=== PATIENT | female | born 1955 | race Caucasian/White ===

== ENCOUNTER → 2017-06-01 | Outpatient (CLI) | payer OTHER ==
[~2017-06-01] VITALS: Ht 157.5 cm; Wt 76.2 kg
[~2017-06-01] MED LIST: ALLERCLEAR10 MG PO; AMBEREN; ARTIFICIAL TEAR15 M3 OPHTHALMIC; CAMPRAL 333 MG333 M1 PO; CIPROFLOXACIN500 M3 PO; CORAL CALCIUM1 EAC2 PO; CYMBALTA60 MG PO; DEXAMETHASONE 44 M1 PO; DIAZEPAM 5 MG5 M1 PO; DYAZIDE 37.5-21 EACH PO; ESTRACE1 MG PO; ESTRODIAL PO; FENTANYL INTRATHECA; FENTANYL PA50 MCG/HR TRANSDERM; FISH OIL 1,0001 EAC5 PO; FISH OIL 1,001000 MG PO; KEPPRA 500 MG500 M1 PO; LOPRESSOR25 PO; MAXZIDE-25 MG1 EACH PO; MELATONIN3 MG PO; MORPHINE INTRATHECA; MS CONTIN 30 MG30 M1 PO; MS CONTIN30 MG PO; MULTI VITAMIN1 EACH PO; MULTIVITAMINS PO; NAFCILLIN 2 GM A2 G1 IV; NEURONTIN 300300 M1 PO; OXYCODONE HCL 55 MG PO; OXYCODONE HCL15 MG PO; OXYCODONE HCL5 M1 PO; OXYCODONE-ACET1 EAC2 PO; PROTONIX 20 MG20 M1 PO; PROTONIX40 M1 PO; REMERON 30 MG T30 MG PO; REMERON15 MG PO; ROXICODONE15 M1 PO; ROXICODONE5 M1 PO; TOPAMAX50 MG PO; TRAZODONE 150150 M1 PO; TRIAMTERENE-HC1 EAC3 PO; TYLENOL325 MG PO; XANAX 0.25 MG0.25 MG PO; ZOFRAN ODT4 MG PO; [UNRECOGNIZED DRUG - OTHER]
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
[2017-06-01 09:50] VITALS: BP 173/98
== END | disposition home or self-care (01) ==
LOC: PAIN 06:45
DX: Z45.1 Encounter for adjustment and management of infusion pump (principal); M54.16 Radiculopathy, lumbar region; G89.29 Other chronic pain; F32.89 Other specified depressive episodes; F41.8 Other specified anxiety disorders; F10.20 Alcohol dependence, uncomplicated; Z63.4 Disappearance and death of family member; Z88.6 Allergy status to analgesic agent

== ENCOUNTER → 2018-05-10 | Outpatient (CLI) | payer OTHER | LOC: RAD 15:24 | DX: Z12.31 Encounter for screening mammogram for malignant neoplasm of breast (principal) ==

== ENCOUNTER → 2018-08-22 | Outpatient (CLI) | payer OTHER ==
[~2018-08-22] VITALS: Ht 157.5 cm; Wt 76.2 kg
[~2018-08-22] MED LIST changes: +ALLOPURINOL 10100 M1 PO; +MAGOX 400400 MG PO; +NORVASC5 MG PO
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
[2018-08-22 10:32] VITALS: BP 152/101
== END | disposition home or self-care (01) ==
LOC: PAIN 00:36
DX: Z45.1 Encounter for adjustment and management of infusion pump (principal); G89.29 Other chronic pain; M47.20 Other spondylosis with radiculopathy, site unspecified; M96.1 Postlaminectomy syndrome, not elsewhere classified; F41.9 Anxiety disorder, unspecified; F32.9 Major depressive disorder, single episode, unspecified; M16.10 Unilateral primary osteoarthritis, unspecified hip; I10 Essential (primary) hypertension; Z79.891 Long term (current) use of opiate analgesic; F17.290 Nicotine dependence, other tobacco product, uncomplicated; Z88.8 Allergy status to other drugs, medicaments and biological substances; Z79.899 Other long term (current) drug therapy

== ENCOUNTER → 2018-08-31 | Outpatient (CLI) | payer OTHER | LOC: MRI 09:58 | DX: M51.34 Other intervertebral disc degeneration, thoracic region (principal); M51.24 Other intervertebral disc displacement, thoracic region; R60.0 Localized edema ==

== ENCOUNTER → 2018-11-21 | Outpatient (CLI) | payer OTHER ==
[~2018-11-21] VITALS: Ht 157.5 cm; Wt 72.3 kg
--- NOTE | ~2018-11-21 | HPC ---
[facility] [address] [place] [address] PAIN MANAGEMENT CONSULTATION Name: JIMI GALE [facility] [id number] Admission: 11/21/18 ������������������ Attend Phys: Yared Juan MD Discharge: ������������������ Date of : 55 Report #: [id number] THIS REPORT FOR: //name// CC: Hosea Juan DATE OF SERVICE: 11/21/2018 Followup visit for chronic low back pain status post multiple laminectomies, chronic intractable pain and intrathecal pump management. The patient returns to the clinic today for refill of intrathecal infusion pump. She looks pretty good today. She has lost some weight. She was recently in the hospital. She sounded upbeat. She talked a lot about her new dogs. They seem to have an instilled some energy and happiness into her life, as the record reflects she has been long struggling with alcoholism and complicated grief. She was hospitalized briefly at [facility] in the last month and a half. She suffered from an infection. I am not sure why this stay was so long. She was also hypotensive at that time. Some of her medications were adjusted. PQRS REVIEW: I have reviewed all of her medications. She is on no oral opioids. She is on medication for hypertension. No anticoagulants, however. She has a long-standing history of back problems and spondylosis with osteoarthritis of the spine. She scores her average daily pain as a 7-8/10. She has fallen in the last 3 months and would be considered a fall risk because of unsteadiness of her feet and blood pressure issues. She does not smoke. She denies use of any alcohol. PHYSICAL EXAMINATION: GENERAL: She is pleasant, alert and oriented, does not seem overly sedated or anxious or depressed. VITAL SIGNS: Her blood pressure is 142/82, heart rate 120, respirations are 20 and O2 sat 100%. BMI 29.1. MUSCULOSKELETAL: She moves from a sitting to standing position. Her gait is mildly antalgic and her legs are slightly weak. She seems a little unsteady on her feet. She has tenderness across her scar in the low back. Straight leg raising bilaterally reproduces discomfort and she is positive. Sensation is intact. She has absent deep tendon reflexes bilaterally in lower extremities. IMPRESSION: 1. Post-laminectomy syndrome, failed back syndrome with radiculopathy. 2. Depression and anxiety. She seems to be in remission at this time. 3. Management of intrathecal infusion pump with reprogramming and refill. [facility] [address] [place] [address] PAIN MANAGEMENT CONSULTATION Name: JIMI GALE Room #: REG [facility]#: [id number] Admission: 11/21/18 ������������������ Attend Phys: Yared Juan MD Discharge: ������������������ Date of : 55 Report #: [id number] I have reviewed her MRI with her of the thoracic region at T10. Dr. Lu has a rather lengthy note in there, but from my view, although there may be something posteriorly within the intrathecal space, there is nothing that is compressing on the cord and I do not believe that there is any evidence of granuloma to suggest intervention. PROCEDURE: Skin was prepped with ChloraPrep. Skin anesthetized. A 22-gauge non-coring needle advanced into the intrathecal pump. Old medication was removed and discarded. Pump refilled then with a combination of morphine and fentanyl. Reprogramming session performed. Her next refill is on 02/21/2019 and her daily dose will remain at 3.8 of morphine and 190 of fentanyl. She has done well with the dual opioid therapy. Programming information was provided to the patient. I plan to see her back in the pain clinic in 3 months. ��������������������������������������������� ���������������������������������������� By: ��������������������������������������������� [id number] Yared Juan MD /nt
[2018-11-21 14:54] VITALS: BP 142/82
--- NOTE | 2018-11-21 14:59 | NUR ---
Pain Clinic Assessment: 1. History of Osteoarthritis: BACK History of Rheumatoid Arthritis: NO 2. Height: 5 ft. 2 in. 157.5 cm. Weight: 159.4 lb. oz. 72.303 kg. Patient's BMI: 29.1 3. Vital Signs: BP: 142/82 Pulse: 120 Resp: 20 Temp: 02 Sat: 100 ECG Mon: 4. Pain Intensity: 7-8 5. Fall Risk: Dizziness: N Needs help standing or walking: N Fallen in the last 3 months: Y Fall risk comments: 6. Patient on Blood Thinner: None 7. History of Hypertension: Y 8. Opioid Therapy greater than 6 weeks: Y Opiate Contract Signed: 02/23/09 9. Risk Assessment Tool Provided: 12-HIGH RISK 10. Functional Assessment Tool: / 11. Recreational Drug Use: Past greater than 3 mos Drug Type: Tobacco Use: Never Smoker Tobacco Type: Amount or Packs/day: How Many Years: Alcohol Use: Yes Frequency: Weekly Quant: 2-3
== END | disposition home or self-care (01) ==
LOC: PAIN 06:57
DX: Z45.1 Encounter for adjustment and management of infusion pump (principal); M96.1 Postlaminectomy syndrome, not elsewhere classified; F41.9 Anxiety disorder, unspecified; F32.9 Major depressive disorder, single episode, unspecified; I10 Essential (primary) hypertension; M19.90 Unspecified osteoarthritis, unspecified site; Z88.8 Allergy status to other drugs, medicaments and biological substances; Z79.899 Other long term (current) drug therapy

== ENCOUNTER → 2019-02-13 | Outpatient (CLI) | payer OTHER ==
[~2019-02-13] VITALS: Ht 157.5 cm; Wt 73.8 kg
[~2019-02-13] MED LIST changes: +CARVEDILOL12.5 MG PO; +LASIX 40 MG TAB40 M2 PO
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
[2019-02-13 14:25] VITALS: BP 124/75
--- NOTE | 2019-02-13 14:47 | NUR ---
Pain Clinic Assessment: 1. History of Osteoarthritis: BACK History of Rheumatoid Arthritis: NO 2. Height: 5 ft. 2 in. 157.5 cm. Weight: 162.8 lb. oz. 73.846 kg. Patient's BMI: 29.8 3. Vital Signs: BP: 124/75 Pulse: 92 Resp: 14 Temp: 02 Sat: 98 ECG Mon: 4. Pain Intensity: 8-9 5. Fall Risk: Dizziness: N Needs help standing or walking: N Fallen in the last 3 months: N Fall risk comments: 6. Patient on Blood Thinner: None 7. History of Hypertension: Y 8. Opioid Therapy greater than 6 weeks: Y Opiate Contract Signed: 02/23/09 9. Risk Assessment Tool Provided: 12-HIGH RISK 10. Functional Assessment Tool: / 11. Recreational Drug Use: Past greater than 3 mos Drug Type: Tobacco Use: Never Smoker Tobacco Type: Amount or Packs/day: How Many Years: Alcohol Use: Yes Frequency: Daily Quant: 2
== END | disposition home or self-care (01) ==
LOC: PAIN 06:49
DX: Z45.1 Encounter for adjustment and management of infusion pump (principal); M54.16 Radiculopathy, lumbar region; G89.29 Other chronic pain; I10 Essential (primary) hypertension; F32.9 Major depressive disorder, single episode, unspecified; Z98.890 Other specified postprocedural states; Z79.899 Other long term (current) drug therapy; Z79.891 Long term (current) use of opiate analgesic; Z88.8 Allergy status to other drugs, medicaments and biological substances

== ENCOUNTER → 2019-03-02 | Outpatient (CLI) | payer OTHER ==
[~2019-03-02] VITALS: Ht 157.5 cm; Wt 74.9 kg
[2019-03-02 10:06] VITALS: BP 128/70
--- NOTE | 2019-03-02 10:12 | NUR ---
Pain Clinic Assessment: 1. History of Osteoarthritis: BACK History of Rheumatoid Arthritis: NO 2. Height: 5 ft. 2 in. 157.5 cm. Weight: 165.2 lb. oz. 74.934 kg. Patient's BMI: 30.2 3. Vital Signs: BP: 128/70 Pulse: 92 Resp: 16 Temp: 02 Sat: 100 ECG Mon: 4. Pain Intensity: 7-8 5. Fall Risk: Dizziness: N Needs help standing or walking: N Fallen in the last 3 months: N Fall risk comments: 6. Patient on Blood Thinner: None 7. History of Hypertension: Y 8. Opioid Therapy greater than 6 weeks: Y Opiate Contract Signed: 02/23/09 9. Risk Assessment Tool Provided: 12-HIGH RISK 10. Functional Assessment Tool: / 11. Recreational Drug Use: Past greater than 3 mos Drug Type: Tobacco Use: Never Smoker Tobacco Type: Amount or Packs/day: How Many Years: Alcohol Use: Yes Frequency: Quant:
--- NOTE | 2019-03-14 17:25 | HPC ---
[facility] [place] [address] PAIN MANAGEMENT CONSULTATION Name: JIMI GALE Room #: REG [facility]#: [id number] Admission: 03/02/19 ������������������ Attend Phys: Yared Juan MD Discharge: ������������������ Date of : 55 Report #: [id number] THIS REPORT FOR: //name// CC: Hosea Juan DATE OF SERVICE: 03/02/2019 Followup visit for chronic low back pain with radiculopathy. The patient was seen recently in the pain clinic for renewal of her intrathecal infusion pump and refill. She has returned today for the epidural injection we discussed at that visit. She continues to complain of pain in her back that radiates down into the hips bilaterally. Level of pain is at 9/10. Her pump refill was two weeks ago. There have been no significant changes since that visit. Please refer to dictation from the visit of less than three weeks ago. PHYSICAL EXAMINATION: Today, she is pleasant. Blood pressure 128/70, heart rate is 92, respirations 16. She is able to independently move from sitting to standing position and ambulates with pain. There is discomfort across the lumbosacral segment, pain with forward flexion and extension. She has a fairly extensive scar. There is a scar to the right of midline from placement of her intrathecal catheter. There is pain in her hips bilaterally. Straight leg raising reproduces some pain predominantly in the hips and in the L5-S1 distribution. Sensation is intact. IMPRESSION: 1. Chronic low back pain, post-laminectomy syndrome with radiculopathy. 2. Chronic depression and anxiety and history of alcohol addiction. She has currently been sober for a number of days. She has reported some drinking and she was counseled. 3. Hypertension. PROCEDURE: Caudal epidural injection under fluoroscopic guidance. After informed consent, she was taken to fluoroscopic suite where she was placed prone. Skin was prepped with ChloraPrep. Skin anesthetized over the sacral hiatus. A 20-gauge Tuohy epidural needle was advanced into the sacral hiatus and 0.25 mL of Omnipaque injected to demonstrate an excellent epidurogram extending cephalad into her scar region. This was then followed by a total of 10 mL of 0.5% lidocaine mixed with 80 mg of triamcinolone. She tolerated the procedure well. Pain score was reduced by about 40% in the recovery room and she was discharged without medication or a pump adjustment. [address] [address] PAIN MANAGEMENT CONSULTATION Name: JIMI GALE Room #: REG [facility]#: [id number] Admission: 03/02/19 ������������������ Attend Phys: Yared Juan MD Discharge: ������������������ Date of : 55 Report #: [id number] Follow up as needed. ��������������������������������������������� <ELECTRONICALLY SIGNED> ���������������������������������������� By: Yared Juan MD ��������������������������������������������� 03/14/19 1725 [id number] Yared Juan MD /bishop
== END | disposition home or self-care (01) ==
LOC: PAIN 09:55
DX: M54.16 Radiculopathy, lumbar region (principal); G89.29 Other chronic pain; M96.1 Postlaminectomy syndrome, not elsewhere classified; F32.89 Other specified depressive episodes; F41.8 Other specified anxiety disorders; I10 Essential (primary) hypertension; Z88.8 Allergy status to other drugs, medicaments and biological substances; Z79.899 Other long term (current) drug therapy

== ENCOUNTER → 2019-05-08 | Outpatient (CLI) | payer OTHER ==
[~2019-05-08] VITALS: Ht 157.5 cm; Wt 74.9 kg
--- NOTE | ~2019-05-08 | HPC ---
[facility] [employer] [place] [address] PAIN MANAGEMENT CONSULTATION Name: JIMI GALE Room #: REG [facility].#: [id number] Admission: 05/08/19 Attend Phys: Yared Juan MD Discharge: Date of : 55 Report #: [id number] THIS REPORT FOR: //name// CC: BRYAN Juan DATE OF SERVICE: 05/08/2019 Followup visit for chronic low back pain with radiculopathy. Management of intrathecal infusion pump with refill and reprogramming. The patient returns to pain clinic today in followup. She saw very little improvement following her caudal epidural injection. It costs $500. She is hopeful that we can continue to manage her medication with her intrathecal pump. Overall, she seems somewhat better. She scores her pain as usual an 8/10, but it sounds like she is being more active. She has a number of issues going on with her eyes. She had a corneal laceration. This occurred in September and she has been seeing Dr. Kline at [facility] as well as Dr. Mcelroy at the [facility]. She is having issues with cataracts and also with a corneal laceration and is undergoing a laser procedure in the next 24 hours. PQRS REVIEW: 1. History of osteoarthritis including her lumbar spine with spondylosis. 2. She is 5 feet 2 inches, 165 pounds, BMI of 30.2. We discussed the importance of remaining active and weight loss. 3. Blood pressure is 123/68, heart rate is 97, respirations 20, O2 sat 98. 4. Pain intensity 8/10. 5. She has not fallen in the last 3 months and I would not consider her a fall risk. 6. She is on no blood thinners. 7. She has a history of hypertension. She has not seen a Dr. Hall in some time. I have recommended that she call him and get in to be checked. She has some underlying issues including her chronic use of alcohol. 8. She is not receiving opioid medications from our clinic beyond the medications in her intrathecal pump. 9. She is considered a high risk for addiction with her alcoholism. She scores 12 on the opioid risk tool. 10. Functional assessment tool scored by the patient is 68 suggesting that her pain is interfering with multiple activities of daily living. 11. She denies use of tobacco, denies use of frequent alcohol, but is drinking still 4-5 times a week 2-3 alcoholic beverages. I have counseled her repeatedly and once again today about remaining off of alcohol. She is an alcoholic and [address] [address] PAIN MANAGEMENT CONSULTATION Name: JIMI GALE Room #: REG [facility] Joseph.#: [id number] Admission: 05/08/19 Attend Phys: Yared Juan MD Discharge: Date of : 55 Report #: [id number] she understands that she does not have control over her alcohol. I have urged her to go back to AA. PHYSICAL EXAMINATION: GENERAL: She is pleasant, alert and oriented. She does not appear to be overmedicated or intoxicated. We had a nice conversation. She moves easily from sitting to standing position. Her gait is moderately antalgic. CHEST: Clear to auscultation. CARDIOVASCULAR: Her cardiac rhythm is regular. There is no audible murmur. BACK: She has tenderness across her low back and across her spine. There is a scar with tenderness to the right of midline. NEUROLOGIC: Bilateral straight leg raising reproduces pain in the hips and the L5-S1 distribution. There is no loss of sensation. No focal weakness is noted. IMPRESSION: 1. Chronic low back pain, post-laminectomy syndrome with failed back. 2. Chronic depression, anxiety and alcoholism. 3. History of hypertension. 4. Management of intrathecal pump with refill and reprogramming. PROCEDURE: Refill and reprogramming. Skin was prepped with ChloraPrep and a 22-gauge non-coring needle advanced in the intrathecal pump. Old medication removed and discarded per protocol. Pump was refilled with fentanyl and morphine and a reprogramming session was performed. Her discharge medication dose will be morphine 4 mg a day and fentanyl 200 mcg a day intrathecally. There is no PTM device. Her next refill is scheduled for 08/05/2019. Low reservoir alarm is set at 2.0. Followup visit planned in July. By: [id number] Yared Juan MD /nt
[2019-05-08 10:22] VITALS: BP 123/68
--- NOTE | 2019-05-08 10:31 | NUR ---
Pain Clinic Assessment: 1. History of Osteoarthritis: BACK History of Rheumatoid Arthritis: NO 2. Height: 5 ft. 2 in. 157.5 cm. Weight: 165.2 lb. oz. 74.934 kg. Patient's BMI: 30.2 3. Vital Signs: BP: 123/68 Pulse: 97 Resp: 20 Temp: 02 Sat: 98 ECG Mon: 4. Pain Intensity: 8 5. Fall Risk: Dizziness: N Needs help standing or walking: N Fallen in the last 3 months: N Fall risk comments: 6. Patient on Blood Thinner: None 7. History of Hypertension: Y 8. Opioid Therapy greater than 6 weeks: Y Opiate Contract Signed: 02/23/09 9. Risk Assessment Tool Provided: 12-HIGH RISK 10. Functional Assessment Tool: / 11. Recreational Drug Use: Never Drug Type: Tobacco Use: Never Smoker Tobacco Type: Amount or Packs/day: How Many Years: Alcohol Use: Yes Frequency: Weekly Quant: 4-5 TIMES A WEEK 2-3 DRINKS
== END | disposition home or self-care (01) ==
LOC: PAIN 06:53
DX: Z45.1 Encounter for adjustment and management of infusion pump (principal); M54.16 Radiculopathy, lumbar region; M96.1 Postlaminectomy syndrome, not elsewhere classified; G89.29 Other chronic pain; I10 Essential (primary) hypertension; F32.89 Other specified depressive episodes; F41.8 Other specified anxiety disorders; F10.10 Alcohol abuse, uncomplicated; Z79.891 Long term (current) use of opiate analgesic; Z98.890 Other specified postprocedural states; Z79.899 Other long term (current) drug therapy

== ENCOUNTER → 2019-07-27 | Outpatient (CLI) | payer OTHER ==
[~2019-07-27] VITALS: Ht 157.5 cm; Wt 78.4 kg
[~2019-07-27] MED LIST changes: +CELEBREX 200 M200 MG PO
[2019-07-27 13:32] VITALS: BP 127/87
--- NOTE | 2019-07-27 13:52 | NUR ---
Pain Clinic Assessment: 1. History of Osteoarthritis: BACK History of Rheumatoid Arthritis: DENIES 2. Height: 5 ft. 2 in. 157.5 cm. Weight: 172.8 lb. oz. 78.382 kg. Patient's BMI: 31.6 3. Vital Signs: BP: 127/87 Pulse: 97 Resp: 16 Temp: 02 Sat: 100 ECG Mon: 4. Pain Intensity: 7 5. Fall Risk: Dizziness: N Needs help standing or walking: N Fallen in the last 3 months: N Fall risk comments: 6. Patient on Blood Thinner: None 7. History of Hypertension: Y 8. Opioid Therapy greater than 6 weeks: Y Opiate Contract Signed: 02/23/09 9. Risk Assessment Tool Provided: HIGH 10 10. Functional Assessment Tool: /70 11. Recreational Drug Use: Never Drug Type: Tobacco Use: Never Smoker Tobacco Type: Amount or Packs/day: How Many Years: Alcohol Use: Yes Frequency: Weekly Quant: 2 X WEEK
== END | disposition home or self-care (01) ==
LOC: PAIN 07:02
DX: Z45.1 Encounter for adjustment and management of infusion pump (principal); Z88.8 Allergy status to other drugs, medicaments and biological substances; Z79.899 Other long term (current) drug therapy

== ENCOUNTER → 2019-10-30 | Outpatient (CLI) | payer OTHER ==
[2019-10-30 15:21] VITALS: BP 118/69
--- NOTE | 2019-10-30 15:49 | NUR ---
Pain Clinic Assessment: 1. History of Osteoarthritis: BACK History of Rheumatoid Arthritis: DENIES 2. Height: 5 ft. 2 in. 152.4 cm. Weight: lb. oz. kg. Patient's BMI: 3. Vital Signs: BP: 118/69 Pulse: 135 Resp: 14 Temp: 02 Sat: 99 ECG Mon: 4. Pain Intensity: 7 5. Fall Risk: Dizziness: Y Needs help standing or walking: Y Fallen in the last 3 months: N Fall risk comments: 6. Patient on Blood Thinner: None 7. History of Hypertension: Y 8. Opioid Therapy greater than 6 weeks: Y Opiate Contract Signed: 02/23/09 9. Risk Assessment Tool Provided: HIGH 10 10. Functional Assessment Tool: 55/70 11. Recreational Drug Use: Never Drug Type: Tobacco Use: Never Smoker Tobacco Type: Amount or Packs/day: How Many Years: Alcohol Use: Yes Frequency: Daily Quant: 3-4 SHOTS DAILY TO "HELP WITH PAIN CONTROL"
--- NOTE | 2019-11-09 14:30 | HPC ---
[facility] [place] [place] [address] [address] PAIN MANAGEMENT CONSULTATION Name: JIMI GALE Room #: REG [facility].#: [id number] Admission: 10/30/19 Attend Phys: Yared Juan MD Discharge: Date of : 55 Report #: [id number] THIS REPORT FOR: cc: Hosea Hall MD, Rene P. MD Morgan,Yared Contreras MD ~ THIS REPORT FOR: //name// CC: Hosea Juan DATE OF SERVICE: 10/30/2019 Followup visit for chronic post-laminectomy syndrome and management of intrathecal infusion pump. The patient returns to clinic today in withdrawal. She was called on several occasions an appointment set for her refill, but she did not show up. Her pump more than likely stopped providing medication about 72 hours ago to her, although the alarms were going off for at least a week. She knows that if she does not get in, she will go through withdrawal and indeed that is exactly what is happening today. She has all the signs of withdrawal with shaking, upset stomach, piloerection, tachycardia and her pain score has increased dramatically. Her pump infuses a combination of fentanyl and morphine, so this is all opioid withdrawal. She has an alcoholic, began drinking a day or two ago as a result of the withdrawal. I will return to the schedule today to make sure that we could refill the pump as expediently as possible. PQRS: Positive for diffuse osteoarthritis and spondylosis. She would not consent to being weighed today, coming in a wheelchair, so we did get a BMI. She is tachycardic with a heart rate of 135. Blood pressure 118/65, respirations 14, O2 sat 99. Pain intensity 7. I would consider her a fall risk. She is on no blood thinners. She does have a history of hypertension. I do not provide oral opioid medications for her, only that in her intrathecal pump. She is at high risk for addiction with her alcoholism. Her functional assessment score is 70/70 today. She denies tobacco, but has been drinking recently as described above. PHYSICAL EXAMINATION: Her vital signs as noted above. Her description is also listed in the history of present illness. CHEST: Her chest is clear with no rales, rhonchi or wheezing. CARDIAC: Rhythm is regular and very rapid. I did not hear a murmur. ABDOMEN: Tender. There is some hypersensitivity, hyperalgesia around the area of the pump as I prepared to refill it. She has some piloerection noted in both [facility] [place] [place] [address] [place] [address] PAIN MANAGEMENT CONSULTATION Name: JIMI GALE Room #: REG [facility]#: [id number] Admission: 10/30/19 Attend Phys: Yared Juan MD Discharge: Date of : 55 Report #: [id number] the upper and lower extremities consistent with her withdrawal. IMPRESSION: 1. Chronic intractable back pain, post-laminectomy syndrome. 2. Alcoholism. 3. Withdrawal from intrathecal opioid medication. PLAN: I am going to refill her intrathecal pump today. I did not give her a bolus because I am afraid that there is medication in the pump tubing. As we reinitiate the pump infusion within 24 hours, she should begin to start see symptom improvement. I do not think that she is particularly in harm sway right now, but certainly is going through quite a difficult stretch. PROCEDURE: Skin was prepped with ChloraPrep and a 22-gauge non-coring needle advanced into the intrathecal pump. I was unable to aspirate volume. In order to confirm that I was properly located, although my suspicion was 99%, I mary beth 5 mL of normal saline and injected it into the pump. The field was typical. I was able to then aspirate all 5 mL back in total, confirming that I was in the intrathecal pump. I then injected the pump and filled it with the fentanyl and morphine combination and a reprogramming session was performed initiating the pump immediately. Her BLAKE is scheduled for 31 months. Her next refill is scheduled on 01/21/2020. I stressed to her today and we will make every effort to make sure that she returns to clinic for refill, but it is her responsibility. No medications were ordered. She was discharged to her friend's care. Follow up as needed. <ELECTRONICALLY SIGNED> By: Yared Juan MD 11/09/19 1430 [id number] Yared Juan MD /nt
== END | disposition home or self-care (01) ==
LOC: PAIN 10-16 06:54
DX: Z45.1 Encounter for adjustment and management of infusion pump (principal); G89.29 Other chronic pain; M54.9 Dorsalgia, unspecified; M96.1 Postlaminectomy syndrome, not elsewhere classified; M19.90 Unspecified osteoarthritis, unspecified site; I10 Essential (primary) hypertension; F10.10 Alcohol abuse, uncomplicated; Z98.890 Other specified postprocedural states; Z79.899 Other long term (current) drug therapy; Z88.8 Allergy status to other drugs, medicaments and biological substances